=== PATIENT | female | born 1955 | race African-American/Black ===

== ENCOUNTER 2018-08-09 17:33 | Emergency (ER) | payer MEDICARE, MEDICAID ==
[~2018-08-09] VITALS: Ht 152.4 cm; Wt 64.0 kg
[~2018-08-09 17:33] MED LIST: KEFLEX; NAPR250T; NITR0.4T; TRAM50TA94
[2018-08-09 17:42] VITALS: BP 134/66
== END 2018-08-09 20:54 | disposition left against medical advice (07) ==
LOC: ER 19:10
DX: Z53.21 Procedure and treatment not carried out due to patient leaving prior to being seen by health care provider (principal)